=== PATIENT | female | born 1990 | race African-American/Black ===

== ENCOUNTER 2016-12-31 22:38 | Emergency (ER) | payer SELFPAY ==
[~2016-12-31] VITALS: Ht 152.4 cm; Wt 50.8 kg
[2016-12-31] MEDS ORDERED: IV DEXTROSE 5% - 0.9 % NACL 500 ML IV ONE (23:15)
[2016-12-31] MEDS ORDERED: ONDANSETRON PF 4 MG/2 ML VIAL. IV ONE (23:30)
[2016-12-31 23:35] LABS: BARBITURATES NEG (NEG); BENZODIAZEPINES NEG (NEG); CANNABINOIDS POS (NEG); COCAINE POS (NEG); METHADONE NEG (NEG); OPIATES NEG (NEG); PHENCYCLIDINE NEG (NEG)
[2016-12-31 23:41] LABS: BASO % 0 % (0-3); EOS % 0 % (0-3); HEMATOCRIT 38.1 % (36.0-47.0); HEMOGLOBIN 12.2 g/dL (12.0-15.5); LYMPH # 1.4 x10^3/uL (1.0-4.8); LYMPH % 9 % (24-48); MEAN CORPUSCULAR HEMOGLOBIN 29 pg (25-35); MEAN CORPUSCULAR HGB CONC 32 g/dL (31-37); MEAN CORPUSCULAR VOLUME 89 fL (79-100); MONO % 4 % (0-9); NEUT % 87 % (31-73); PLATELET COUNT 225 x10^3/uL (140-400); RED BLOOD COUNT 4.27 x10^6/uL (3.50-5.40); RED CELL DISTRIBUTION WIDTH 13.5 % (11.5-14.5); WHITE BLOOD COUNT 15.7 x10^3/uL (4.0-11.0)
[2017-01-01 00:13] LABS: PLT ESTIMATE ADEQUATE (ADEQUATE)
[2017-01-01 00:15] LABS: CALCIUM 8.6 mg/dL (8.5-10.1); GFR 81.1
[2017-01-01 00:21] LABS: ALBUMIN/GLOBULIN RATIO 0.9 (1.0-1.7); TOTAL BILIRUBIN 0.3 mg/dL (0.2-1.0); TOTAL PROTEIN 8.4 g/dL (6.4-8.2)
[2017-01-01 00:23] VITALS: BP 88/49
[2017-01-01] MEDS ORDERED: ONDA4TAB7 PO (00:32)
--- NOTE | 2017-01-01 00:32 | PHYS DOC ---
Past Medical History Past Medical History: Other Additional Past Medical Histor: hypoglycemic Past Surgical History: Tonsillectomy Alcohol Use: Rarely Drug Use: None Adult General Chief Complaint Chief Complaint: NAUSEA/VOMITING/DIARRHA HPI HPI Patient is a 26 year old [f__sex] who presents with [] Review of Systems Review of Systems Constitutional: Denies fever or chills [] Eyes: Denies change in visual acuity, redness, or eye pain [] HENT: Denies nasal congestion or sore throat [] Respiratory: Denies cough or shortness of breath [] Cardiovascular: No additional information not addressed in HPI [] GI: Denies abdominal pain, nausea, vomiting, bloody stools or diarrhea [] : Denies dysuria or hematuria [] Musculoskeletal: Denies back pain or joint pain [] Integument: Denies rash or skin lesions [] Neurologic: Denies headache, focal weakness or sensory changes [] Endocrine: Denies polyuria or polydipsia [] Current Medications Current Medications Current Medications Medications (Trade) Dose Ordered Sig/Jimmy Start Time Stop Time Status Last Admin Dose Admin Dextrose/Sodium Chloride 500 ml @ 0 mls/hr 1X ONCE 12/31/16 23:15 12/31/16 23:16 DC 12/31/16 23:15 500 MLS/HR Ondansetron HCl (Zofran) 4 mg 1X ONCE 12/31/16 23:30 12/31/16 23:31 DC 12/31/16 23:34 4 MG Allergies Allergies Allergies Coded Allergies Type Severity Reaction Last Updated Verified No Known Drug Allergies 12/31/16 No Physical Exam Physical Exam Constitutional: Well developed, well nourished, no acute distress, non-toxic appearance. [] HENT: Normocephalic, atraumatic, bilateral external ears normal, oropharynx moist, no oral exudates, nose normal. [] Eyes: PERRLA, EOMI, conjunctiva normal, no discharge. [] Neck: Normal range of motion, no tenderness, supple, no stridor. [] Cardiovascular:Heart rate regular rhythm, no murmur [] Lungs & Thorax: Bilateral breath sounds clear to auscultation [] Abdomen: Bowel sounds normal, soft, no tenderness, no masses, no pulsatile masses. [] Skin: Warm, dry, no erythema, no rash. [] Back: No tenderness, no CVA tenderness. [] Extremities: No tenderness, no cyanosis, no clubbing, ROM intact, no edema. [] Neurologic: Alert and oriented X 3, normal motor function, normal sensory function, no focal deficits noted. [] Psychologic: Affect normal, judgement normal, mood normal. [] Current Patient Data Vital Signs Vital Signs Date Time Temp Pulse Resp B/P (MAP) Pulse Ox O2 Delivery O2 Flow Rate FiO2 12/31/16 22:57 98.1 77 16 100 Room Air 98.1 Lab Values Laboratory Tests Test 12/31/16 22:26 12/31/16 23:16 12/31/16 23:24 12/31/16 23:56 POC Urine HCG, Qualitative Hcg negative (Negative) Urine Opiates Screen Neg (NEG) Urine Methadone Screen Neg (NEG) Urine Barbiturates Neg (NEG) Urine Phencyclidine Screen Neg (NEG) Urine Amphetamine/Methamphetamine Neg (NEG) Urine Benzodiazepines Screen Neg (NEG) Urine Cocaine Screen Pos (NEG) Urine Cannabinoids Screen Pos (NEG) Urine Ethyl Alcohol Pos (NEG) White Blood Count 15.7 x10^3/uL (4.0-11.0) H Red Blood Count 4.27 x10^6/uL (3.50-5.40) Hemoglobin 12.2 g/dL (12.0-15.5) Hematocrit 38.1 % (36.0-47.0) Mean Corpuscular Volume 89 fL (79-100) Mean Corpuscular Hemoglobin 29 pg (25-35) Mean Corpuscular Hemoglobin Concent 32 g/dL (31-37) Red Cell Distribution Width 13.5 % (11.5-14.5) Platelet Count 225 x10^3/uL (140-400) Neutrophils (%) (Auto) 87 % (31-73) H Lymphocytes (%) (Auto) 9 % (24-48) L Monocytes (%) (Auto) 4 % (0-9) Eosinophils (%) (Auto) 0 % (0-3) Basophils (%) (Auto) 0 % (0-3) Neutrophils # (Auto) 13.5 x10^3uL (1.8-7.7) H Lymphocytes # (Auto) 1.4 x10^3/uL (1.0-4.8) Monocytes # (Auto) 0.7 x10^3/uL (0.0-1.1) Eosinophils # (Auto) 0.1 x10^3/uL (0.0-0.7) Basophils # (Auto) 0.0 x10^3/uL (0.0-0.2) Segmented Neutrophils % 76 % (35-66) H Lymphocytes % 24 % (24-48) Platelet Estimate Adequate (ADEQUATE) Sodium Level 138 mmol/L (136-145) Potassium Level 4.0 mmol/L (3.5-5.1) Chloride Level 100 mmol/L (98-107) Carbon Dioxide Level 22 mmol/L (21-32) Anion Gap 16 (6-14) H Blood Urea Nitrogen 14 mg/dL (7-20) Creatinine 1.0 mg/dL (0.6-1.0) Estimated GFR (Cockcroft-Gault) 81.1 BUN/Creatinine Ratio 14 (6-20) Glucose Level 146 mg/dL (70-99) H Calcium Level 8.6 mg/dL (8.5-10.1) Total Bilirubin 0.3 mg/dL (0.2-1.0) Aspartate Amino Transferase (AST) 55 U/L (15-37) H Alanine Aminotransferase (ALT) 38 U/L (14-59) Alkaline Phosphatase 86 U/L (46-116) Total Protein 8.4 g/dL (6.4-8.2) H Albumin 4.0 g/dL (3.4-5.0) Albumin/Globulin Ratio 0.9 (1.0-1.7) L Laboratory Tests 12/31/16 23:24 Laboratory Tests 12/31/16 23:56 EKG EKG [] Radiology/Procedures Radiology/Procedures [] Course & Med Decision Making Course & Med Decision Making Pertinent Labs and Imaging studies reviewed. (See chart for details) they have been discussed with the patient. 0028 re evaluated the patient, patient resting comfortably and in no distress, no more dry heaving or vomiting. I have emphasized to the patient need for follow-up and recheck, patient agrees to follow-up as directed. Results of drug screen were discussed with the patient in private and abstinence emphasized and the reasons why explained. Pt voices understanding. [] Dragon Disclaimer Dragon Disclaimer This electronic medical record was generated, in whole or in part, using a voice recognition dictation system. Departure Departure Impression: Primary Impression: Vomiting Additional Impressions: Dehydration Drug abuse Disposition: 01 HOME, SELF-CARE Condition: IMPROVED Referrals: NO PCP (PCP) Patient Instructions: Dehydration, Adult, [id number], Nausea and Vomiting Additional Instructions: Please follow up with one of the clinics in the list provided to you or your PCP in 2-4 days for recheck and reevaluation Scripts Ondansetron Hcl (ZOFRAN) 4 Mg Tablet 1 TAB PO Q8HRS, #12 TAB Prov: Navid REYES MD 01/01/17 Problem Qualifiers Navid REYES MD Jan 01, 2017 00:32
== END 2017-01-01 00:45 | disposition home or self-care (01) ==
LOC: ER 22:38
DX: E86.0 Dehydration (principal); F19.10 Other psychoactive substance abuse, uncomplicated; R11.2 Nausea with vomiting, unspecified; E16.2 Hypoglycemia, unspecified
CPT/HCPCS: 36415; 80053; 80307; 81025; 85007; 85027; 96361; 96374; 99284; J2405; J7042; G0479

== ENCOUNTER 2018-01-30 08:01 | Emergency (ER) | payer SELFPAY ==
[~2018-01-30] VITALS: Ht 152.4 cm; Wt 53.5 kg
[~2018-01-30 08:01] MED LIST: ONDA4TAB7 PO
--- NOTE | 2018-01-30 08:16 | PHYS DOC ---
Past Medical History Past Medical History: Other Additional Past Medical Histor: hypoglycemic Past Surgical History: Tonsillectomy Alcohol Use: Rarely Drug Use: None Adult General Chief Complaint Chief Complaint: LOWER EXTREMITY SWELLING HPI HPI Patient is a 27 year old female who presents today complaining of bilateral feet swelling for 4 days. Patient denies any known injury. 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 Patient denies any recent hospitalization or surgery, denies any recent long air travel, denies any use of hormones, denies any chest pain, denies any shortness of breath, denies any chance she is . Review of Systems Review of Systems Constitutional: Denies fever or chills [] Eyes: Denies change in visual acuity, redness, or eye pain [] HENT: Denies nasal congestion or sore throat [] Respiratory: Denies cough or shortness of breath [] Cardiovascular: No additional information not addressed in HPI [] GI: Denies abdominal pain, nausea, vomiting, bloody stools or diarrhea [] : Denies dysuria or hematuria [] Musculoskeletal: Reports bilateral lower extremity swelling. Denies back pain or joint pain [] Integument: Denies rash or skin lesions [] Neurologic: Denies headache, focal weakness or sensory changes [] All other systems were reviewed and found to be within normal limits, except as documented in this note. Allergies Allergies Allergies Coded Allergies Type Severity Reaction Last Updated Verified No Known Drug Allergies 12/31/16 No Physical Exam Physical Exam Constitutional: Well developed, well nourished, no acute distress, non-toxic appearance. [] HENT: Normocephalic, atraumatic, bilateral external ears normal, oropharynx moist, no oral exudates, nose normal. [] Eyes: PERRLA, EOMI, conjunctiva normal, no discharge. [] Neck: Normal range of motion, no tenderness, supple, no stridor. [] Cardiovascular:Heart rate regular rhythm, no murmur [] Lungs & Thorax: Bilateral breath sounds clear to auscultation [] Abdomen: Bowel sounds normal, soft, no tenderness, no masses, no pulsatile masses. [] Skin: Warm, dry, no erythema, no rash. [] Back: No tenderness, no CVA tenderness. [] Extremities: No tenderness, no cyanosis, no clubbing, ROM intact, trace edema to bilateral ankles, negative bilateral Homans sign, +2 bilateral pedal pulses. Neurologic: Alert and oriented X 3, normal motor function, normal sensory function, no focal deficits noted. [] Psychologic: Affect normal, judgement normal, mood normal. [] Current Patient Data Vital Signs Vital Signs Date Time Temp Pulse Resp B/P (MAP) Pulse Ox O2 Delivery O2 Flow Rate FiO2 01/30/18 09:30 52 18 122/79 (93) 100 Room Air 01/30/18 08:08 97.7 97.7 Lab Values Laboratory Tests Test 01/30/18 08:11 01/30/18 08:50 01/30/18 08:58 01/30/18 09:04 Glucose (Fingerstick) 88 mg/dL (70-99) Urine Color Yellow Urine Clarity Clear Urine pH 7.5 Urine Specific [place] <=1.005 Urine Protein Negative mg/dL (NEG-TRACE) Urine Glucose (UA) Negative mg/dL (NEG) Urine Ketones (Stick) Negative mg/dL (NEG) Urine Blood Negative (NEG) Urine Nitrite Negative (NEG) Urine Bilirubin Negative (NEG) Urine Urobilinogen Dipstick 0.2 mg/dL (0.2 mg/dL) Urine Leukocyte Esterase Negative (NEG) Urine RBC 0 /HPF (0-2) Urine WBC Occ /HPF (0-4) Urine Squamous Epithelial Cells Mod /LPF Urine Bacteria 0 /HPF (0-FEW) POC Urine HCG, Qualitative Hcg negative (Negative) POC Hemoglobin 12.9 g/dL (12-15) POC Hematocrit 38 % (36-40) POC Sodium 137 mmol/L (135-145) POC Potassium 3.9 mmol/L (3.5-5.0) POC Chloride 103 mmol/L (98-110) POC Total CO2 28 mmol/L (23-32) Anion Gap 11 mmol/L (6-14) POC Blood Urea Nitrogen 10 mg/dL (8-26) POC Creatinine 0.7 mg/dL (0.5-1.4) Glucose Level 86 mg/dL (70-99) POC Ionized Calcium ([place]) 1.13 mmol/L (1.13-1.32) Laboratory Tests 01/30/18 09:04 EKG EKG [] Radiology/Procedures Radiology/Procedures [] Course & Med Decision Making Course & Med Decision Making Pertinent Labs and Imaging studies reviewed. (See chart for details) This is a 27-year-old female patient presented to the ED today with complaints of bilateral lower extremities swelling for 4 days. PERC score 0. She has trace edema to bilateral lower extremities, negative Homans sign bilaterally. Patient' s chem 8 was negative for any acute findings, urine analysis is negative for any acute findings. Negative urine hCG. Recommended patient to buy compression stockings. Recommended elevation of bilateral lower extremities when resting. Recommended following up with her PCP. Provided return precautions and discharged in stable condition. Her vitals are normal. Staff Physician Addendum: I was working in the ER during the course of this patient's visit. I was available for consultation as needed, but I was not directly involved in the care of this patient. Dragon Disclaimer Dragon Disclaimer This electronic medical record was generated, in whole or in part, using a voice recognition dictation system. Departure Departure Impression: Primary Impression: Swelling of lower extremity Disposition: HOME, SELF-CARE Condition: STABLE Referrals: NO PCP (PCP) Follow-up with the primary care doctor in 1-2 weeks Patient Instructions: Edema, [id number] Additional Instructions: You were evaluated in the emergency room for bilateral lower extremity swelling. We highly recommend you buy a compression stockings and wear them. Elevate your feet above your heart when you resting. Follow-up with her primary care doctor in 1-2 weeks. Come back to the emergency room at any point symptoms worsen. VINNIE VERDUZCO APRN Jan 30, 2018 08:16 BRAYDON ESQUIVEL MD Jan 30, 2018 15:57
[2018-01-30 09:16] LABS: CREATININE ISTAT 0.7 mg/dL (0.5-1.4); HEMOGLOBIN ISTAT 12.9 g/dL (12-15); ION CA ISTAT 1.13 mmol/L (1.13-1.32); POTASSIUM ISTAT 3.9 mmol/L (3.5-5.0)
[2018-01-30 09:19] LABS: BILIRUBIN,URINE NEGATIVE (NEG); CLARITY,URINE CLEAR; COLOR,URINE YELLOW; NITRITE,URINE NEGATIVE (NEG); PH,URINE 7.5; PROTEIN,URINE NEGATIVE (NEG-TRACE); UROBILINOGEN,URINE 0.2 mg/dL (0.2 mg/dL)
[2018-01-30 09:30] VITALS: BP 122/79
[2018-01-30 09:35] LABS: SQUAMOUS EPITHELIAL CELL,UR MOD /LPF
[2018-01-30 09:36] LABS: BACTERIA,URINE 0 /HPF (0-FEW); RBC,URINE 0 /HPF (0-2); WBC,URINE OCC /HPF (0-4)
== END 2018-01-30 10:26 | disposition home or self-care (01) ==
LOC: ER 08:01
DX: R22.43 Localized swelling, mass and lump, lower limb, bilateral (principal); Z90.89 Acquired absence of other organs
CPT/HCPCS: 80047; 81001; 81025; 82962; 99284

== ENCOUNTER 2018-03-24 15:00 | Emergency (ER) | payer SELFPAY ==
[~2018-03-24] VITALS: Ht 152.4 cm; Wt 53.1 kg
[2018-03-24] MEDS ORDERED: IV NORMAL SALINE 1000ML BAG 1,000 ML IV ONE ×2 (16:00→17:30)
[2018-03-24] MEDS ORDERED: ONDANSETRON PF 4 MG/2 ML VIAL. IV ONE (16:00)
[2018-03-24 16:17] LABS: BASO % 0 % (0-3); EOS % 0 % (0-3); HEMATOCRIT 37.6 % (36.0-47.0); HEMOGLOBIN 12.8 g/dL (12.0-15.5); LYMPH # 1.2 x10^3/uL (1.0-4.8); LYMPH % 8 % (24-48); MEAN CORPUSCULAR HEMOGLOBIN 29 pg (25-35); MEAN CORPUSCULAR HGB CONC 34 g/dL (31-37); MEAN CORPUSCULAR VOLUME 85 fL (79-100); MONO # 0.9 x10^3/uL (0.0-1.1); MONO % 5 % (0-9); NEUT # 14.4 x10^3uL (1.8-7.7); NEUT % 87 % (31-73); PLATELET COUNT 304 x10^3/uL (140-400); RED BLOOD COUNT 4.42 x10^6/uL (3.50-5.40); WHITE BLOOD COUNT 16.5 x10^3/uL (4.0-11.0)
[2018-03-24 16:31] LABS: CALCIUM 9.7 mg/dL (8.5-10.1); CREATININE 1.1 mg/dL (0.6-1.0); GFR 72.1; POTASSIUM 3.8 mmol/L (3.5-5.1)
[2018-03-24 16:38] LABS: ALBUMIN 4.3 g/dL (3.4-5.0); ALBUMIN/GLOBULIN RATIO 0.9 (1.0-1.7); TOTAL BILIRUBIN 0.3 mg/dL (0.2-1.0); TOTAL PROTEIN 9.2 g/dL (6.4-8.2)
[2018-03-24 17:01] LABS: % BANDS 6 % (0-9); % BASOS 1 % (0-3); % LYMPHS 11 % (24-48); % MONOS 6 % (0-10); % SEGS 76 % (35-66); PLT ESTIMATE ADEQUATE (ADEQUATE)
[2018-03-24 17:53] LABS: BILIRUBIN,URINE NEGATIVE (NEG); CLARITY,URINE CLEAR; COLOR,URINE YELLOW; NITRITE,URINE NEGATIVE (NEG); PH,URINE 5.5; PROTEIN,URINE NEGATIVE (NEG-TRACE); UROBILINOGEN,URINE 0.2 mg/dL (0.2 mg/dL)
[2018-03-24 18:00] VITALS: BP 105/53
[2018-03-24 18:07] LABS: BACTERIA,URINE 0 /HPF (0-FEW); RBC,URINE 0 /HPF (0-2); SQUAMOUS EPITHELIAL CELL,UR MOD /LPF; WBC,URINE OCC /HPF (0-4)
[2018-03-24 18:08] LABS: AMORPHOUS SEDIMENT,UR PRESENT /HPF
[2018-03-24] MEDS ORDERED: ONDA4TAB10 SL (18:13)
--- NOTE | 2018-03-24 18:15 | PHYS DOC ---
Past Medical History Past Medical History: Other Additional Past Medical Histor: hypoglycemic Past Surgical History: Tonsillectomy Alcohol Use: Occasionally Drug Use: Marijuana Adult General Chief Complaint Chief Complaint: NAUSEA/VOMITING/DIARRHA HPI HPI Patient is a 27 year old female who presents with nausea and vomiting 1. The patient states that she has been vomiting throughout the day today. She is unable to hold down fluids. She denies constipation, diarrhea or fever. She denies abdominal pain except for the epigastric pain from vomiting. Nothing is relieving her symptoms. Review of Systems Review of Systems Constitutional: Denies fever or chills [] Eyes: Denies change in visual acuity, redness, or eye pain [] HENT: Denies nasal congestion or sore throat [] Respiratory: Denies cough or shortness of breath [] Cardiovascular: No additional information not addressed in HPI [] GI: See history of present illness : Denies dysuria or hematuria [] Musculoskeletal: Denies back pain or joint pain [] Integument: Denies rash or skin lesions [] Neurologic: Denies headache, focal weakness or sensory changes [] Endocrine: Denies polyuria or polydipsia [] All other systems were reviewed and found to be within normal limits, except as documented in this note. Current Medications Current Medications Current Medications Medications (Trade) Dose Ordered Sig/Jimmy Start Time Stop Time Status Last Admin Dose Admin Ondansetron HCl (Zofran) 4 mg 1X ONCE 03/24/18 16:00 03/24/18 16:01 DC 03/24/18 16:40 4 MG Sodium Chloride 1,000 ml @ 1,000 mls/hr 1X ONCE 03/24/18 17:30 03/24/18 18:29 DC 03/24/18 17:44 1,000 MLS/HR Allergies Allergies Allergies Coded Allergies Type Severity Reaction Last Updated Verified No Known Drug Allergies 12/31/16 No Physical Exam Physical Exam Constitutional: Well developed, well nourished, no acute distress, non-toxic appearance. [] HENT: Normocephalic, atraumatic, bilateral external ears normal, oropharynx moist, no oral exudates, nose normal. [] Eyes: PERRLA, EOMI, conjunctiva normal, no discharge. [] Neck: Normal range of motion, no tenderness, supple, no stridor. [] Cardiovascular:Heart rate regular rhythm, no murmur [] Lungs & Thorax: Bilateral breath sounds clear to auscultation [] Abdomen: Bowel sounds normal, soft, mild epigastric tenderness, no masses, no pulsatile masses. [] Skin: Warm, dry, no erythema, no rash. [] Back: No tenderness, no CVA tenderness. [] Extremities: No tenderness, no cyanosis, no clubbing, ROM intact, no edema. [] Neurologic: Alert and oriented X 3, normal motor function, normal sensory function, no focal deficits noted. [] Psychologic: Affect normal, judgement normal, mood normal. [] Current Patient Data Vital Signs Vital Signs Date Time Temp Pulse Resp B/P (MAP) Pulse Ox O2 Delivery O2 Flow Rate FiO2 03/24/18 18:00 76 16 105/53 (70) 98 Room Air 03/24/18 16:00 98.6 98.6 Lab Values Laboratory Tests Test 03/24/18 16:00 03/24/18 17:40 White Blood Count 16.5 x10^3/uL (4.0-11.0) H Red Blood Count 4.42 x10^6/uL (3.50-5.40) Hemoglobin 12.8 g/dL (12.0-15.5) Hematocrit 37.6 % (36.0-47.0) Mean Corpuscular Volume 85 fL (79-100) Mean Corpuscular Hemoglobin 29 pg (25-35) Mean Corpuscular Hemoglobin Concent 34 g/dL (31-37) Red Cell Distribution Width 13.0 % (11.5-14.5) Platelet Count 304 x10^3/uL (140-400) Neutrophils (%) (Auto) 87 % (31-73) H Lymphocytes (%) (Auto) 8 % (24-48) L Monocytes (%) (Auto) 5 % (0-9) Eosinophils (%) (Auto) 0 % (0-3) Basophils (%) (Auto) 0 % (0-3) Neutrophils # (Auto) 14.4 x10^3uL (1.8-7.7) H Lymphocytes # (Auto) 1.2 x10^3/uL (1.0-4.8) Monocytes # (Auto) 0.9 x10^3/uL (0.0-1.1) Eosinophils # (Auto) 0.0 x10^3/uL (0.0-0.7) Basophils # (Auto) 0.0 x10^3/uL (0.0-0.2) Segmented Neutrophils % 76 % (35-66) H Band Neutrophils % 6 % (0-9) Lymphocytes % 11 % (24-48) L Monocytes % 6 % (0-10) Basophils % 1 % (0-3) Platelet Estimate Adequate (ADEQUATE) Sodium Level 141 mmol/L (136-145) Potassium Level 3.8 mmol/L (3.5-5.1) Chloride Level 100 mmol/L (98-107) Carbon Dioxide Level 21 mmol/L (21-32) Anion Gap 20 (6-14) H Blood Urea Nitrogen 18 mg/dL (7-20) Creatinine 1.1 mg/dL (0.6-1.0) H Estimated GFR (Cockcroft-Gault) 72.1 BUN/Creatinine Ratio 16 (6-20) Glucose Level 106 mg/dL (70-99) H Calcium Level 9.7 mg/dL (8.5-10.1) Total Bilirubin 0.3 mg/dL (0.2-1.0) Aspartate Amino Transferase (AST) 54 U/L (15-37) H Alanine Aminotransferase (ALT) 40 U/L (14-59) Alkaline Phosphatase 85 U/L (46-116) Total Protein 9.2 g/dL (6.4-8.2) H Albumin 4.3 g/dL (3.4-5.0) Albumin/Globulin Ratio 0.9 (1.0-1.7) L Urine Collection Type Unknown Urine Color Yellow Urine Clarity Clear Urine pH 5.5 Urine Specific [place] 1.025 Urine Protein Negative mg/dL (NEG-TRACE) Urine Glucose (UA) Negative mg/dL (NEG) Urine Ketones (Stick) >=80 mg/dL (NEG) Urine Blood Negative (NEG) Urine Nitrite Negative (NEG) Urine Bilirubin Negative (NEG) Urine Urobilinogen Dipstick 0.2 mg/dL (0.2 mg/dL) Urine Leukocyte Esterase Negative (NEG) Urine RBC 0 /HPF (0-2) Urine WBC Occ /HPF (0-4) Urine Squamous Epithelial Cells Mod /LPF Urine Amorphous Sediment Present /HPF Urine Bacteria 0 /HPF (0-FEW) Urine Mucus Mod /LPF Laboratory Tests 03/24/18 16:00 Laboratory Tests 03/24/18 16:00 EKG EKG [] Radiology/Procedures Radiology/Procedures [] Course & Med Decision Making Course & Med Decision Making Pertinent Labs and Imaging studies reviewed. (See chart for details) []The patient was given 2 L of normal saline in the emergency Department as well as Zofran. She states that this has relieved her symptoms. She is to continue to increase her fluid intake. She is to follow-up with her primary care provider if not improving in 3 days or return to the emergency department if worsening. Dragon Disclaimer Dragon Disclaimer This electronic medical record was generated, in whole or in part, using a voice recognition dictation system. Departure Departure Impression: Primary Impression: Nausea and vomiting Additional Impression: Dehydration Disposition: 01 HOME, SELF-CARE Condition: STABLE Referrals: NO PCP (PCP) Patient Instructions: Nausea and Vomiting, [id number] Additional Instructions: Follow-up with your primary care provider in 2 days if not improving. If your nausea and vomiting worsen or if you developed a fever or abdominal pain return to the emergency department. Scripts Ondansetron (ZOFRAN ODT) 4 Mg Tab.rapdis 1 TAB SL Q8HRS, #15 TAB Prov: FELICE LEVIN APRN 03/24/18 Problem Qualifiers FELICE LEVIN APRN Mar 24, 2018 18:15
== END 2018-03-24 18:30 | disposition home or self-care (01) ==
LOC: ER 15:00
DX: R11.2 Nausea with vomiting, unspecified (principal); E86.0 Dehydration; R10.13 Epigastric pain; Z90.89 Acquired absence of other organs
CPT/HCPCS: 36415; 80053; 81001; 85007; 85025; 96360; 96361; 99284; J2405; J7030